=== PATIENT | female | born 1965 | race African-American/Black ===

== ENCOUNTER 2017-02-14 06:31 | Emergency (ER) | payer MEDICAID ==
[~2017-02-14] VITALS: Ht 165.1 cm; Wt 68.0 kg
[2017-02-14] MEDS ORDERED: METHYLPREDNISOLONE SOD SUCC 125 MG/2 ML VIAL IV ONE (07:15)
[2017-02-14] MEDS ORDERED: FAMOTIDINE 20MG/2ML VIAL IV ONE (07:15)
[2017-02-14] MEDS ORDERED: DIPHENHYDRAMINE 50MG/ML VIAL IV ONE (07:15)
[2017-02-14 07:23] VITALS: BP 136/53
[2017-02-14] MEDS ORDERED: ACETAMINOPHEN 325MG TABLET PO ONE (08:45)
== END 2017-02-14 09:35 | disposition home or self-care (01) ==
LOC: ER 09:24
DX: T78.3XXA Angioneurotic edema, initial encounter (principal); T46.4X5A Adverse effect of angiotensin-converting-enzyme inhibitors, initial encounter; I10 Essential (primary) hypertension; Y92.89 Other specified places as the place of occurrence of the external cause
CPT/HCPCS: 96374; 96375; 99284; J1200; J2930; J3490; Z7610

== ENCOUNTER 2024-08-06 23:07 | Emergency (ER) | payer MEDICAID ==
[~2024-08-06] VITALS: Ht 165.1 cm; Wt 68.0 kg
[2024-08-06 23:18] VITALS: TEMP 37.1; O2SAT 97
[2024-08-06] MEDS ORDERED: CEPH500T MT (23:26)
[2024-08-06] MEDS ORDERED: HC A30CR11 RC (23:26)
[2024-08-06 23:42] VITALS: BP 138/62; PULSE 73; RESP 17; O2SAT 100
== END 2024-08-06 23:42 | disposition home or self-care (01) ==
LOC: ER 23:07
DX: S50.861A Insect bite (nonvenomous) of right forearm, initial encounter (principal); M79.631 Pain in right forearm; I10 Essential (primary) hypertension; E11.9 Type 2 diabetes mellitus without complications; W57.XXXA Bitten or stung by nonvenomous insect and other nonvenomous arthropods, initial encounter; Y93.89 Activity, other specified; Y92.89 Other specified places as the place of occurrence of the external cause; Y99.8 Other external cause status
CPT/HCPCS: 99283